=== PATIENT | female | born 1985 | race Caucasian/White ===

== ENCOUNTER 2017-08-16 13:54 | Emergency (ER) | payer BC ==
[2017-08-16 16:57] VITALS: BP 123/75
--- NOTE | 2017-08-16 18:11 | UC ---
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 Today she started getting some red painful spots on her fingers and feet adn tongue. feels a little tired and slight WELCH. 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 overall feels fine though. - History of Current Complaint Chief Complaint: UCSkin Time Seen by Provider: 08/16/17 17:02 Stated Complaint: SORE THROAT Hx Last Menstrual Period: 07/23/17 - Allergy/Home Medications Allergies/Adverse Reactions: Allergies Allergy/AdvReac Type Severity Reaction Status Date / Time No Known Allergies Allergy Verified 08/16/17 16:56 Home Medications: Home Medications Desogestrel-Ethinyl Estradiol [Viorele 0.15-0.02/0.01 mg (13/04)] 1 tab PO BEDTIME 08/16/17 [History Confirmed 08/16/17] Escitalopram (NF) [Lexapro 10 mg (NF)] 10 mg PO BEDTIME 08/16/17 [History Confirmed 08/16/17] Levothyroxine TAB* [Synthroid 125 MCG TAB*] 125 mcg PO DAILY 08/16/17 [History Confirmed 08/16/17] Review of Systems Constitutional: Fatigue Skin: Rash Eyes: Negative ENT: Other - tongue spots Respiratory: Negative Cardiovascular: Negative Gastrointestinal: Negative Genitourinary: Negative Motor: Negative Neurovascular: Negative Musculoskeletal: Negative Neurological: Negative Psychological: Negative Is Patient Immunocompromised?: No All Other Systems Reviewed And Are Negative: Yes PMH/Surg Hx/FS Hx/Imm Hx Previously Healthy: Yes Endocrine History: Thyroid Disease - Surgical History Surgical History: Yes Surgery Procedure, Year, and Place: 2 c-sections - Family History Known Family History: Positive: Other - Fhx coxsackie - Social History Alcohol Use: Rare Substance Use Type: None Smoking Status (MU): Never Smoked Tobacco Physical Exam Triage Information Reviewed: Yes Appearance: Well-Appearing, No Pain Distress, Well-Nourished Vital Signs: Initial Vital Signs Temp 98.7 F 08/16/17 16:52 Pulse 85 08/16/17 16:52 Resp 15 08/16/17 16:52 BP 123/75 08/16/17 16:52 Pulse Ox 99 08/16/17 16:52 Vital Signs Reviewed: Yes Eye Exam: Normal ENT: Positive: Hearing grossly normal, Pharynx normal, Other: - tongue with a few small red dots. Dental Exam: Normal Neck exam: Normal Neck: Positive: Supple, Nontender, No Lymphadenopathy Respiratory Exam: Normal Respiratory: Positive: Lungs clear, Normal breath sounds, No respiratory distress Cardiovascular Exam: Normal Cardiovascular: Positive: RRR, No Murmur, Pulses Normal Abdomen Description: Positive: Nontender, Soft Musculoskeletal Exam: Normal Neurological Exam: Normal Psychological Exam: Normal Skin: Positive: Other - B/L hands and feet with very small 1-3 mm round red elevated lesions. mo surrounding erythema, no d/c. Course/Dx - Course Course Of Treatment: discussed that this is conatgious for several weeks after lesions resolve. OOW note given x 3 days and should be eval'd by employee health to release to work at [employer]. shuuld wear gloves. aware that fingernails may fall off after 1 mo. nsaids, rest and fluids for pain/recovery. - Differential Diagnoses - Skin Complaint Differential Diagnoses: Cellulitis, Contact Dermatitis, Urticaria - Hand foot mouth disease - Diagnoses Provider Diagnoses: coxsackie virus Discharge - Discharge Plan Condition: Stable Disposition: HOME Patient Education Materials: Hand, Foot, and Mouth Disease (ED) Forms: *Work Release Referrals: Non Staff,Doctor [Primary Care Provider] - Additional Instructions: Please follow up with your PCP Dr Osman this week and with [facility].
== END 2017-08-16 18:15 | disposition home or self-care (01) ==
LOC: UCCORT 13:54
DX: B34.1 Enterovirus infection, unspecified (principal)
CPT/HCPCS: 99201; G0463